=== PATIENT | male | born 1965 | race Caucasian/White ===

== ENCOUNTER 2024-06-15 08:16 | Outpatient (CLI) | payer OTHER, SELFPAY | END 2024-06-15 08:17 | disposition home or self-care (01) | LOC: INJ CL 08:20 | PROVIDERS: PCP Family Medicine; Visit Provider Family Medicine | DX: M51.369 Other intervertebral disc degeneration, lumbar region without mention of lumbar back pain or lower extremity pain (principal) | CPT/HCPCS: 62323; J0702; Q9966 ==

== ENCOUNTER 2025-02-11 10:54 | Emergency (ER) | payer OTHER, SELFPAY ==
[2025-02-11 11:00] VITALS: BP 137/78; PULSE 59; RESP 18; TEMP 36.1; O2SAT 96; BMI 25.1
--- OUTSIDE RECORDS SUMMARY | 2025-02-11 11:02 | XMS_ITS | Clinical Summary ---
Author Organization [facility] Address [address] [place] [address] Care Team Providers Care Skin Washer Name Role Phone Shahzad Wells MD Primary Care Provider Saúl Pina Unavailable [phone] Allergies Active Allergy Reactions Criticality Noted Date Comments Valacyclovir Tremors 10/13/2023 Medications multivitamin (MVI) tablet Take 1 tablet by mouth once daily. 0 9 Active albuterol HFA (Ventolin HFA) 90 mcg/actuation inhalerIndicatio ns:Cough, unspecified type Inhale 1-2 Puffs by mouth 4 times daily if needed for Wheezing (Cough). 8.5 g 02/03/2023 10:21 AM CDT 3 Active inhalational spacing deviceIndication s:Community acquired pneumonia of right lung, unspecified part of lung For home use. 1 Each 06/04/2023 11:00 AM C PYTHON DEVELOPER 3 Active COVID-19 antigen test (Flowflex COVID-19 Ag Home Test) kit Use as directed on packaging. 4 Kit 06/04/2023 11:00 AM C PYTHON DEVELOPER 3 Active celecoxib (CELEBREX) 200 mg capsuleIndicatio ns:Chronic bilateral low back pain without sciatica,DDD (degenerative disc disease), lumbar Take 1 Capsule (200 mg) by mouth 2 times daily with meals. 60 Capsule 2 07/14/2024 1:59 PM C PYTHON DEVELOPER 4 Active traMADoL (ULTRAM) 50 mg tablet Take 1 Tablet (50 mg) by mouth 3 times daily if needed. 15 Tablet 08/15/2023 1:20 PM C PYTHON DEVELOPER 4 Active valACYclovir (VALTREX) 1 gram tabletIndication s:Genital herpes simplex, unspecified site Take 1 Tablet (1 g) by mouth once daily. 90 Tablet 3 07/23/2024 4:36 PM C PYTHON DEVELOPER 4 Active triamcinolone 0.1 % ointmentIndicati ons:Rash Apply topically to affected area(s) 2 times daily. 80 g 2 07/14/2024 1:59 PM C PYTHON DEVELOPER 5 Active methIMAzole 10 mg tabletIndication s:Graves' disease Take 2 Tablets (20 mg) by mouth once daily. 90 Tablet 1 12/10/2024 12:37 PM CDT 5 Active amoxicillin-clav ulanate (AUGMENTIN) 875-125 mg tabletIndication s:Pain of maxillary sinus,Sinus congestion,Acute non-recurrent maxillary sinusitis Take 1 Tablet by mouth every 12 hours. 20 Tablet 5 Active albuterol HFA (PRO-AIR; VENTOLIN; PROVENTIL) 90 mcg/actuation inhalerIndicatio ns:Wheezing Inhale 1-2 Puffs by mouth every 4 hours if needed for Shortness Of Breath or Wheezing. 1 Each 5 Active sertraline 100 mg tabletIndication s:Major depressive disorder, recurrent, moderate (HC) Take 1 Tablet (100 mg) by mouth once daily in the morning. 90 Tablet 3 12/10/2024 12:37 PM CDT 5 Active gabapentin (NEURONTIN) 300 mg capsuleIndicatio ns:Insomnia, unspecified type Take 1-2 Capsules (300-600 mg) by mouth at bedtime. 180 Capsule 3 09/22/2024 12:15 PM CDT 5 Active atorvastatin 40 mg tabletIndication s:Peripheral vascular disease Take 1 Tablet (40 mg) by mouth at bedtime. 90 Tablet 3 11/18/2024 12:38 PM CDT 5 Active Active Problems Problem Noted Date Diagnosed Date Herpes 10/13/2023 NSVT (nonsustained ventricular tachycardia) 08/08 Personal history of colonic polyps 03/28/2014 Resolved Problems Problem Noted Date Diagnosed Date Resolved Date L5-S1 disk herniation to the left 04/25/2014 08/27/2016 Lumbosacral radiculopathy at S1 04/25/2014 08/27/2016 Insomnia, unspecified 03/18/20122016 Posttraumatic Stress Disorder, Chronic 06/07/2011 08/27/2016 Major depressive disorder, r ecurrent episode, moderate 06/07/2011 08/27/2016 Depression with anxiety 07/16/201008/08 Depression with anxiety 07/16/201004/07 Encounters Date Type Department Care Team Description 01/19/2025 8:00 AM CDT Office Visit [facility] [address] [place] [address] Yoanna Fischer, OD Eye Exam 01/19/2025 Travel 01/06/2025 Telephone [facility] [address] [place] [address] Shahzad Wells MD Results (PFT 10/02/24) 01/05/2025 Telephone [facility] [address] [place] [address] Pete Chu MD requesting call from Last 3 Months Immunizations Immunization Administration Dates Next Due AMB Influenza, IIV4 PF (=>6 mos Flulaval,Fluzone Fluarix)(Flu Clinic Only) 05/05/2019 COVID-19 vaccine (Pfizer-Bio NTech 30mcg/0.3mL) 12YO+ BIVALENT PF, MDV 06/24/2022 COVID-19 vaccine (Pfizer-Bio NTech 30mcg/0.3mL) PF, MDV 10/18/2020,09/28/2020 Inactivated Polio Vaccine 04/19/1980,10/26/1979 Influenza A (H1N1), Inactivated 07/14/2009 Influenza A (H1N1), Inactiva marlen (Age >=3 Years) 07/14/2009 Influenza Virus, Unspecified 05/07/2017 Influenza, High-dose Inactivated 05/17/2016 Influenza, IIV3 (Age >=3 years) 05/01/2012 Influenza, IIV4 06/24/2022,,03/30/2018,2015,04/05/2015,04/12/2013 Influenza, IIV4 (=>6mos) MDV 03/25/2017 MMR 10/26/1979 Oral Polio Vaccine 04/19/1980,10/26/1979 Td (Age >=7 Years) 07/19/1981,04/19/1980, 980 Td, Preservative Free (age > = 7 Years) 02/05/2019 Tdap 12/26/2021,04/12/2013,11/29/2008 Family History Medical History Relation Name Comments Heart Disease Brother 3 Stroke Brother 4 Coronary artery disease Father age 73 sx early. prostate ca. Heart attack Father Other Sister emphysema Relation Name Status Comments Brother 1 (Age 42) [place] Brother 2 (Age 52) stroke Brother 3 Brother 4 Father Mother Alive Sister Social History Tobacco Use Types Packs/Day Years Used Date Smoking Tobacco: Former Cigarettes Q uit: 02/06/1988 Smokeless Tobacco: Never Tobacco Cessation:Counseling Given: Yes Alcohol Use Standard Drinks/Week Comments Yes 0 (1 standard drink = 0.6 oz pur e alcohol) rare PHQ-2 Answer Date Recorded PHQ-2 TOTAL SCORE 1 10/21/2023 Social Connections Answer Date Recorded Do you often feel lonely or isolated from those around you? 0 01/07/2024 Financial Resource Strain Answer Date R ecorded Difficulty of Paying Living Expenses 3 01/07/2024 Difficulty of Paying Living Expenses Not on file 01/07/2024 Food Insecurity Answer Date Recorded Do you worry your food will run out before you are able to buy more? 1 01/07/2024 Transportation Needs Answer Date Record ed Does lack of transportation keep you from medica l appointments? 1 01/07/2024 Does lack of transportation keep you from work, meetings or getting things that you need? 1 01/07/2024 Housing Stability Answer Date Recorded What is your housing situation today? 1 01/07/2024 Utilities Answer Date Recorded Do you have trouble paying f or utilities (for example, heat, electricity, water, phone)? 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 Not on file Not on file Not on file Obstetrics History Last Filed Vital Signs Vital Sign Reading Time Taken Comments Blood Pressure 126/75 09/27/2024 2:30 PM CDT Pulse 74 09/27/2024 2:30 PM CDT Temperature 36.3 C (97.4 F) 09/27/2024 2:30 PM CDT Respiratory Rate 20 09/27/2024 2:30 PM CDT Oxygen Saturation 96% 09/27/2024 2:30 PM CDT Inhaled Oxygen Concentration - - Weight 75.6 kg (166 lb 9.6 oz) 09/16/2024 7:41 A M CDT boots on Height 170.2 cm (5' 7) 10/21/2023 3:06 PM CDT Body Mass Index 26.09 10/21/2023 3:06 PM CDT Plan of Treatment Upcoming Encounters Date Type Department Care Team (Late st Contact Info) Description 02/17/2025 3:45 PM CDT Orders Only [facility] [address] [place] [address] [place], [place] 02/24/2025 3:[address] [facility] [address] [place] Brush [id number] Saúl Pina PA [address] [place] [address] Health Maintenance Due Date Last Done Comments HIV for age 15-65 1978 Pneumococcal series for age 50+ (1 of 2 - PCV) 1982 Zoster (shingles) series for age 50+ (1 of 2) 2013 RSV vaccine for adults or (1 - Risk 60-74 years 1-dose series) 2023 COVID-19 vaccine series ( season) 2024 06/24/2022, 10/18/2020, 09/28/2020 BMI (ht and wt on same day) for age 18+ 10/20/2024 10/21/2023, 08/26/2023, 03/05/2023, Additional history exists Depression screening for age 12+ 10/20/2024 10/21/2023, 09/09/2022, 09/10/2021, Additional history exists Influenza Vaccine (#1) 2025 , 05/24/2020, 05/05/2019, Additional history exists Colonoscopy through age 75 03/04/202803/04, 03/23/2014, 03/23/2014 Lipids for age 45-75 09/24/2029 09/24/2024, 07/09/2022, 05/24/2020, Additional history exists Tetanus booster 12/27/2031 12/26/2021, 0808/2018, 04/12/2013, Additional history exists Hepatitis C screening for age 18-79 Completed 07/09/2022 Hepatitis B series for 19+ Aged Out N o longer eligible based on patient's age to complete this topic Procedures Procedure Name Priority Date/Time Associated Diagnosis Comments LIPID PANEL W REFLEX MEASURED LDL Routine 09/24/2024 4:01 PM CDT Mixed hyperlipidemia COLONOSCOPY 03/04/2023 1:07 PM CDT LC HCV ANTIBODY RFX TO QUANT PCR Routine 07/09/2022 4:03 PM C PYTHON DEVELOPER Need for hepatitis C screening test from Last 3 Months or Most Recently Relevant to Health Maintenance Results * LIPID PANEL W REFLEX MEASURED LDL (09/24/2024 4:01 PM CDT) CHOLESTEROL, TOTAL 149 <200 mg/dL [facility] HDL CHOLESTEROL 42 > OR = 40 mg/dL [facility] TRIGLYCERIDES 133 <150 mg/dL [facility] LDL-CHOLESTEROL 84 mg/dL (calc) [facility] Comment: Reference range: <100 Desirable range <100 mg/dL for primary prevention; <70 mg/dL for patients with CHD or diabetic patients with > or = 2 CHD risk factors. LDL-C is now calculated using the Naomi calculation, which is a validated novel method providing better accuracy than the Friedewald equation in the estimation of LDL-C. Odell SS et al. NOLVIA. 2013;310(19): 6232-5968 (http://education.[employer]/faq/ORO214) CHOL/HDLC RATIO 3.5 <5.0 (calc) [facility] NON HDL CHOLESTEROL 107 <130 mg/dL (calc) [facility] Comment: For patients with diabetes plus 1 major ASCVD risk factor, treating to a non-HDL-C goal of <100 mg/dL (LDL-C of <70 mg/dL) is considered a therapeutic option. Blood BLOOD SPECIMEN / Unknown 09/24/2024 4:01 PM CDT 09/24/2024 4:01 PM CDT Narrative [facility] - 09/25/2024 4:55 AM CDT FASTING:NO FASTING: NO us Shahzad Wells MD CHEMISTRY Final R esult LVL6 [facility] [address] [place] [address], [facility] [address] [place] [address] * COLONOSCOPY (03/04/2023 1:07 PM CDT) 03/04/2023 1:07 PM CDT Narrative Transcriptions Mark Campos DO - 03/04/2023 10:13 PM CDT Patient Name: Jose M Crespo Procedure Date: 03/04/2023 Gender: Male Date of : 1965 Admit Type: Ambulatory Procedure: Colonoscopy Proceduralist: Mark Campos MD [facility] Referring MD: Shahzad Wells MD Indications/Pre-Op Diagnosis: High risk colon cancer surveillance:Personal history of colonic polyps, Last colonoscopy5 years ago Medications: Propofol per Anesthesia Procedure Description: The patient had risks, benefits and alternatives explained to andgave informed consent. The patient had a stable cardiopulmonary status and judged an adequate candidate for conscious sedation. The endoscope [id number] was passed through the anus andadvanced to the cecum, identified by appendiceal orifice and ileocecal valve.The colonoscopy was performed without difficulty. The patient toleratedthe procedure well. The quality of the bowel preparation was good. The ileocecal valve, appendiceal orifice, and rectum were photographed. Complications: No immediate complications. Estimated Blood Loss & Specimen: Estimated blood loss: none. Specimen collected - Yes and sent to Laboratory Findings: Biopsies were taken with a cold forceps in the entire colon for histology. Verification of patient identification for the specimenwas done. Estimated blood loss was minimal. Non-bleeding internal hemorrhoids were found. The hemorrhoids wereGrade I (internal hemorrhoids that do not prolapse). Impressions/Post-Op Diagnosis: - Non-bleeding internal hemorrhoids. - Biopsies were taken with a cold forceps for histology in the entire colon. Recommendation: - Discharge patient to home. - Patient has a contact number available for emergencies. The signsand symptoms of potential delayed complications were discussed with the patient. Return to normal activities tomorrow. Written discharge instructions were provided to the patient. - High fiber diet. - Continue present medications. - Await pathology results. - Repeat colonoscopy in 5 years for surveillance. Moderate Sedation: Moderate (conscious) sedation was personally administered by an anesthesia professional. The following parameters were monitored:oxygen saturation, heart rate, blood pressure, and response to care. Mark Campos MD 03/04/2023 10:13:02 PM This report has been signed electronically. Note Initiated On: 03/04/2023 1:07 PM Mark Campos DO PROCEDURE ORD Fi nal Result * LC HCV ANTIBODY RFX TO QUANT PCR (07/09/2022 4:03 PM C PYTHON DEVELOPER) HCV Ab <0.1 0.0 - 0.9 s/co ratio 07/12/2022 4:07 PM C PYTHON DEVELOPER [facility] Blood BLOOD SPECIMEN / Unknown Venipuncture / Unknown 07/09/2022 4:03 PM C PYTHON DEVELOPER 07/09/2022 4:06 PM C PYTHON DEVELOPER Narrative [facility] - 07/12/2022 4:07 PM C PYTHON DEVELOPER Performed at: [address] [place] [id number] Commercial Specialist: Fidel Gorman MD, Phone: [phone] us Shahzad Wells MD LABORATORY Final R esult [facility] ([facility]) [address] [place] [id number], from Last 3 Months or Most Recently Relevant to Health Maintenance Insurance [facility] [place] [address] [facility] [employer] DEPT [id number] [facility] [place] [phone] Advance Directives * Full Code (Latest Code Status on File) Date Activated Date Inactivated Comments 03/04/2023 12:02 PM 03/04/2023 5:29 PM Question Answer Comments Code Status Discussion: Discussed Care Teams Skin Washer Relationship Specialty Start Date End Date Shahzad Wells MD [address] [place] [address] [place] [address] PCP - General Family Practice 11/27/20 Saúl Pina PA [address] [place] [address] Endocrinology Physician Medicare Insurance Specialist 08/31/24
--- NOTE | 2025-02-11 11:23 | PC.NURSE ---
pt resting on cot, offered warm blanket and ice pack, pt declines both
--- NOTE | 2025-02-11 11:36 | CRLHL7_ITS ---
For Patients: As a result of the Century Cures Act, medical imaging exams and procedure reports are released immediately into your electronic medical record. You may view this report before your referring provider. If you have questions, please contact your health care provider. INDICATION: Short of breath and chest pain. COMPARISON: 10/29/2021 TECHNIQUE: CT angiogram chest with contrast, pulmonary embolism protocol. Multiplanar axial, coronal, and sagittal reformats are included. MIP images to improve detection of pulmonary emboli are included. Intravenous contrast: 95 mL Isovue 370. FINDINGS: PE: Well-timed contrast bolus. No pulmonary emboli. Normal caliber main pulmonary artery. Normal sized right heart chambers. Trace volume reflux of contrast below the diaphragm. Airway: Partially expiratory appearance of the airway. Lungs: Mild basilar atelectasis. No nodules or masses. No consolidations. Normal appearance of the pulmonary interstitium. Pleura: No pleural effusion. No pneumothorax. Lymph nodes: No thoracic adenopathy. Mediastinum: No pneumomediastinum. No mass. Heart and great vessels: No pericardial effusion. Normal cardiac chamber size. Scattered atherosclerotic plaques. No aortic aneurysm. Chest wall: Normal. No masses. Upper abdomen: Low-density lesion in segment 4 measures 1.7 cm and has not changed. Probably a small cyst. Bones: No fractures. No focal bone lesions. IMPRESSION: 1. No pulmonary embolism. 2. Mildly expiratory appearance of the airway and lungs without any acute appearing pulmonary parenchymal findings. Please note that all CT scans at this facility use dose modulation, iterative reconstruction, and/or weight-based dosing when appropriate to reduce radiation dose to as low as reasonably achievable. Dictated by Shelli Burgess MD @ 02/11/2025 12:52:53 PM (Electronically Signed)
--- NOTE | 2025-02-11 11:37 | ED.BACK ---
HPI - Back Pain/Injury General Chief Complaint: Back Injury/Pain Stated Complaint: lower back pain- right side Time Seen by Provider: 02/11/25 11:23 History of Present Illness HPI Narrative: Patient is a 59-year-old gentleman who comes in today with acute on chronic pain in the posterior axillary line on the right. 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 He states he has had intermittent problems over the years but no obvious etiology is been noted. He has no dysuria no nausea no vomiting no fevers no chills. His pain is 6/10 and reproducible with chest movement. He has had no cough it is somewhat short of breath. No other symptoms. Symptoms have been worsening over the last 48 hours. Related Data Home Medications ?Medication ?Instructions ?Recorded ?Confirmed atorvastatin 10 mg tablet 10 mg PO QDAY 02/11/25 02/11/25 gabapentin 100 mg capsule 100 mg PO QDAY 02/11/25 02/11/25 quetiapine 50 mg tablet (Seroquel) 50 mg PO QDAY 02/11/25 02/11/25 Allergies Allergy/AdvReac Type Severity Reaction Status Date / Time No Known Drug Allergies Allergy Verified 02/11/25 11:07 Review of Systems Status of ROS: Reports: 10 or more systems reviewed and unremarkable except as noted in History and below Exam Narrative: Exam Narrative: EXAM GENERAL: Patient appears comfortable and well. EYES: No scleral icterus. LYMPH: No supraclavicular or cervical lymphadenopathy. SKIN: Visible skin seen during exam normal or with benign process only. EXT: No dependent lower extremity pedal edema. HEART: Regular rate and rhythm with no murmurs, rubs, or gallops. LUNGS: Clear to auscultation bilaterally with no crackles or wheezes. ABD: Soft, non tender, non distended. PSYCH: Good eye contact, speech is not pressured. Chest is tender to palpation posterior axillary line on the right. Const: Vital Signs, click to edit/add: Vital Signs - 24 hr 02/11/25 11:00 Temperature 97 F L Pulse Rate [Right Pulse Oximeter] 59 L Respiratory Rate 18 Blood Pressure [Ri ght Upper Arm] 137/78 Pulse Oximetry 96 Oxygen Delivery Me thod Room Air Course Course ED Course: Patient seen and examined. CTA CBC basic metabolic panel UA pending. Vital Signs Vital signs: Initial Vital Signs Temperature 97 F L 02/11/25 11:00 Temperature Source Temporal Artery Scan 02/11/25 11:00 Pulse Rate 59 L 02/11/25 11:00 Pulse Rhythm Regular 02/11/25 11:00 Pulse Strength 3+ Normal 02/11/25 11:00 Respiratory Rate 18 02/11/25 11:00 Blood Pressure 137/78 02/11/25 11:00 Blood Pressure Mean 97 02/11/25 11:00 Blood Pressure Position Sitting 02/11/25 11:00 Pulse Oximetry 96 02/11/25 11:00 Oxygen Delivery Method Room Air 02/11/25 11:00 Vital Signs Temperature 97 F L 02/11/25 11:00 Pulse Rate 59 L 02/11/25 11:00 Respiratory Rate 18 02/11/25 11:00 Blood Pressure 137/78 02/11/25 11:00 Pulse Oximetry 96 02/11/25 11:00 Oxygen Delivery Method Room Air 02/11/25 11:00 Temperature 97 F L 02/11/25 11:00 Pulse Rate 59 L 02/11/25 11:00 Respiratory Rate 18 02/11/25 11:00 Blood Pressure 137/78 02/11/25 11:00 Pulse Oximetry 96 02/11/25 11:00 Oxygen Delivery Method Room Air 02/11/25 11:00 MDM - Back Pain/Injury MDM Narrative Medical decision making narrative: Patient presents with what appears to be mechanical back pain in the right posterior axillary line. With concern due to the severity of his symptoms I did do a CT of his chest showed no evidence of pulmonary embolism and no evidence of rib fractures. His parenchyma is normal. Labs are also reassuring. I did treat him with a prednisone plus limits plan Tylenol No. 3 as directed with primary care follow-up. Lab Data Labs: Lab Results 02/11/25 02/11/25 Range/Units 11:36 11:50 WBC 4.95 (4.50-11.00) K/uL RBC 4.72 (4.30-5.90) m/uL Hgb 14.6 (13.5-17.5) gm/dL Hct 43.1 (37.0-53.0) % MCV 91 (80-100) fL MCH 31 (26-34) pg MCHC 34 (32-36) gm/dL RDW Coeff of Josiane 13.0 (11.5-15.5) % Plt Count 172 (140-440) K/uL Neut % (Auto) 56.6 (42.0-72.0) % Lymph % (Auto) 31.3 (20-44) % [place] % (Auto) 9.9 (0.0-11.0) % Eos % (Auto) 2.0 (0.0-7.0) % Baso % (Auto) 0.0 (0.0-3.0) % Neut # (Auto) 2.80 (1.7-7.0) K/uL Lymph # (Auto) 1.55 (0.90-2.90) K/uL [place] # (Auto) 0.50 (0.00-0.90) K/UL Eos # (Auto) 0.10 (0.00-0.50) K/uL Baso # (Auto) 0.00 (0.00-0.30) K/uL Abs Immat Gran (auto) 0.01 (0.00-0.30) K/uL Imm/Tot Granulo (auto) 0.2 % Sodium 138 (135-149) mmol/L Potassium 4.6 (3.6-5.1) mmol/L Chloride 101 (96-114) mmol/L Carbon Dioxide 28 (20-32) mmol/L Anion Gap 9 (7-15) mEq/L BUN 19 (7-30) mg/dL Creatinine 0.8 (0.5-1.5) mg/dL Estimated Creat Clear 72.53 Estimated GFR 101 ml/min Glucose 94 (60-115) mg/dL Calcium 9.1 (8.4-10.6) mg/dL Urine Color Yellow (Yellow) Urine Appearance Clear (Clear) Urine pH 5.5 (5.0-8.5) Ur Specific [place] 1.020 (1.000-1.030) Urine Protein Negative (Negative) Urine Glucose (UA) Negative (Negative) Urine Ketones Negative (Negative) Urine Blood Negative (Negative) Urine Nitrite Negative (Negative) Urine Bilirubin Negative (Negative) Urine Urobilinogen 0.2 (0.2-1.0) Ur Leukocyte Esterase Negative (Negative) Discharge Plan Discharge Clinical Impression: Chest wall pain Patient Disposition: Home, Self-Care Condition: Stable Instructions: Chest Wall Pain (ED) Additional Instructions: Prednisone as directed Tylenol No. 3 as directed no driving Ice Rest Follow-up with primary care Activity Level: No Restrictions Discharge Diet: Regular Prescriptions: No Action atorvastatin 10 mg tablet 10 mg PO QDAY gabapentin 100 mg capsule 100 mg PO QDAY quetiapine [Seroquel] 50 mg tablet 50 mg PO QDAY Follow Up/Referrals: Shahzad Wells MD [Primary Care Provider, Family Practice] Stand Alone Forms: Semadic Info Instructions
[2025-02-11 11:51] LABS: Appearance Urine Clear (Clear)
[2025-02-11 12:00] LABS: Hematocrit 43.1 % (37.0-53.0); Hemoglobin* 14.6 gm/dL (13.5-17.5); Immature Granulocytes Abs Auto 0.01 K/uL (0.00-0.30); Immature Granulocytes Pct Auto 0.2 %; Lymphocytes Absolute Auto 1.55 K/uL (0.90-2.90); Mean Corpuscular HGB Conc 34 gm/dL (32-36); Mean Corpuscular Hemoglobin 31 pg (26-34); Mean Corpuscular Volume 91 fL (80-100); RDW Coefficient of Variation % 13.0 % (11.5-15.5); Red Blood Count 4.72 m/uL (4.30-5.90); Slide Review Reflex No; White Blood Count* 4.95 K/uL (4.50-11.00)
[2025-02-11 12:14] LABS: Chloride* 101 mmol/L (96-114); Potassium* 4.6 mmol/L (3.6-5.1); Sodium* 138 mmol/L (135-149)
[2025-02-11 12:17] LABS: Anion Gap 9 mEq/L (7-15); Blood Urea Nitrogen* 19 mg/dL (7-30); Calcium* 9.1 mg/dL (8.4-10.6); Carbon Dioxide* 28 mmol/L (20-32); Creatinine* 0.8 mg/dL (0.5-1.5); Est. Creatinine Clearance* 72.53; Estimated Glomerular Filt Rate 101 ml/min; Glucose* 94 mg/dL (60-115)
== END 2025-02-11 13:15 | disposition home or self-care (01) ==
PROVIDERS: Emergency Provider Internal Medicine; PCP Family Medicine
DX: R07.89 Other chest pain (principal); M54.9 Dorsalgia, unspecified; G89.29 Other chronic pain
CPT/HCPCS: 36415; 71275; 80048; 81003; 85025; 99283; 99284; 99285; Q9967

== ENCOUNTER 2025-06-21 07:23 | Outpatient (CLI) | payer OTHER, SELFPAY | END 2025-06-21 07:24 | disposition home or self-care (01) | LOC: INJ CL 07:25 | PROVIDERS: PCP Family Medicine; Visit Provider Family Medicine | DX: M54.16 Radiculopathy, lumbar region (principal); M51.369 Other intervertebral disc degeneration, lumbar region without mention of lumbar back pain or lower extremity pain | CPT/HCPCS: 62323; J0702; Q9966 ==